=== PATIENT | female | born 1950 | race Caucasian/White ===

== ENCOUNTER 2016-08-24 13:21 | Emergency (ER) | payer MEDICARE, OTHER ==
[~2016-08-24] VITALS: Ht 154.9 cm; Wt 48.6 kg
[2016-08-24 13:25] VITALS: BP 131/70; PULSE 70; TEMP 98.8
[2016-08-24] MEDS ORDERED: BYSTOLIC2.5 MG PO (13:48)
[2016-08-24] MEDS ORDERED: RT ADVAIR 528 DISKUS IH (13:49)
[2016-08-24] MEDS ORDERED: LIPITOR 10MG10 MG PO (13:49)
[2016-08-24] MEDS ORDERED: ASPIRIN 81M81 MG/TA2 PO (13:49)
[2016-08-24] MEDS ORDERED: ALLEGRA 180MG180 MG PO (13:50)
[2016-08-24] MEDS ORDERED: LASIX 20MG TABL20 MG PO (13:52)
== END 2016-08-24 15:27 | disposition home or self-care (01) ==
LOC: COL.ER 13:21
DX: S81.811A Laceration without foreign body, right lower leg, initial encounter (principal); I25.2 Old myocardial infarction; Z23 Encounter for immunization; W54.1XXA Struck by dog, initial encounter

== ENCOUNTER → 2017-06-18 | Outpatient (CLI) | payer MEDICARE, OTHER ==
[~2017-06-18] VITALS: Ht 154.9 cm; Wt 50.0 kg
[~2017-06-18] MED LIST: ALLEGRA 180MG180 MG PO; ASPIRIN 81M81 MG/TA2 PO; BYSTOLIC2.5 MG PO; CALCIUM 600 PLU1 TAB PO; FOSAMAX 70MG TA70 MG PO; GLUCOSAMINE MSM1 TAB PO; LASIX 20MG TABL20 MG PO; LIPITOR 10MG10 MG PO; LUTEIN20 M1 PO; MASON NATURAL1200 MG PO; MULTI VITAMINS1 TAB PO; RT ADVAIR 528 DISKUS IH
[2017-06-18 06:45] VITALS: BP 120/74; PULSE 63
[2017-06-18 08:20] VITALS: BP 138/80; PULSE 55
== END ==
LOC: COL.RAD 06:30
DX: M46.1 Sacroiliitis, not elsewhere classified (principal); M48.061 Spinal stenosis, lumbar region without neurogenic claudication
CPT/HCPCS: J3301

== ENCOUNTER 2017-08-14 11:30 | Outpatient (RCR) | payer MEDICARE, OTHER ==
[2017-08-17] MEDS ORDERED: TURMERIC500 MG PO (07:16)
[2017-08-17] MEDS ORDERED: ALEVE 220MG220 MG PO (07:17)
[2017-08-17] MEDS ORDERED: GINGER500 MG PO (07:18)
== END 2017-09-22 | disposition home or self-care (01) ==
LOC: WSC
DX: M46.1 Sacroiliitis, not elsewhere classified (principal); M48.061 Spinal stenosis, lumbar region without neurogenic claudication; M54.42 Lumbago with sciatica, left side; M25.552 Pain in left hip
CPT/HCPCS: G0283-GP; G8978-GP; G8979-GP

== ENCOUNTER → 2017-08-17 | Outpatient (CLI) | payer MEDICARE, OTHER ==
[~2017-08-17] VITALS: Ht 154.9 cm; Wt 49.7 kg
[~2017-08-17] MED LIST changes: +ALEVE 220MG220 MG PO; +GINGER500 MG PO; +TURMERIC500 MG PO
[2017-08-17 07:20] VITALS: BP 132/72; PULSE 52
[2017-08-17 09:00] VITALS: BP 140/78; PULSE 48
== END ==
LOC: COL.RAD 06:57
DX: M48.07 Spinal stenosis, lumbosacral region (principal); M46.1 Sacroiliitis, not elsewhere classified
CPT/HCPCS: J3301

== ENCOUNTER → 2017-09-14 | Outpatient (CLI) | payer MEDICARE, OTHER | LOC: COL.RAD 07:46 | DX: M51.16 Intervertebral disc disorders with radiculopathy, lumbar region (principal); M48.07 Spinal stenosis, lumbosacral region; M46.86 Other specified inflammatory spondylopathies, lumbar region ==

== ENCOUNTER 2018-02-21 02:39 | Emergency (ER) | payer MEDICARE, OTHER ==
[~2018-02-21] VITALS: Ht 154.9 cm; Wt 49.5 kg
[2018-02-21 02:42] VITALS: TEMP 97.3
[2018-02-21 03:19] LABS: BASO # 0.1 (0.0-0.2); BASO % 0.7 % (0.0-2.0); EOS # 0.2 (0.0-0.7); EOS % 2.3 % (0-4.0); GRAN # 6.8 (1.4-6.5); GRAN % 71.4 % (42.2-75.2); HEMOGLOBIN 11.7 g/dl (12.5-16.0); LYMPH # 1.9 (1.2-3.4); LYMPH % 19.3 % (20.0-51.0); MEAN CELL VOLUME 96 fl (80.0-100.0); MEAN CORPUSCULAR HEMOGLOBIN 32 pg (27.0-31.0); MEAN CORPUSCULAR HGB CONC 33 g/dl (33.0-37.0); MEAN PLATELET VOLUME 9.3 fl (7.4-10.4); MONO # 0.6 (0.1-0.6); PLATELET COUNT 211 K/mm3 (130-400); RED BLOOD COUNT 3.66 M/mm3 (4.10-5.30); REDCELL DISTRIBUTION WIDTH-CV 13.6 % (11.5-14.5)
[2018-02-21 03:23] LABS: HEMATOCRIT 35.2 % (37.0-47.0)
[2018-02-21 03:34] LABS: ALANINE AMINOTRANSFERASE 23 U/L (9-52); ALBUMIN 3.7 gm/dL (3.5-5.0); ALKALINE PHOSPHATASE 36 U/L (50-136); ANION GAP 4 mmol/L (7-16); AST,SGOT 22 U/L (15-37); BILIRUBIN,TOTAL 0.2 mg/dL (0.0-1.0); BLOOD UREA NITROGEN 15 mg/dL (7-17); CALCIUM 8.9 mg/dL (8.4-10.2); CARBON DIOXIDE 29 mmol/L (22-30); CHLORIDE 107 mmol/L (98-107); CREATININE, serum 0.64 mg/dL (0.52-1.25); GLUCOSE 123 mg/dL (74-106); POTASSIUM 3.9 mmol/L (3.4-5.0); SODIUM 140 mmol/L (137-145); TOTAL PROTEIN 6.1 gm/dL (6.4-8.2)
[2018-02-21 03:44] LABS: C-REACTIVE PROTEIN < 0.5 mg/dL (0.0-0.9)
[2018-02-21 03:46] LABS: ERYTHROCYTE SEDIMENTATION RATE 8 mm/hr (0-30)
[2018-02-21 06:55] LABS: COLLECTION METHOD CLEAN CATCH
[2018-02-21 07:00] LABS: MUCOUS Present /lpf; PH 6 (5-8); SQUAMOUS EPITHELIAL None Seen /hpf; URINE APPEARANCE Clear; URINE BACTERIA None Seen /hpf; URINE BILIRUBIN Negative (NEGATIVE); URINE BLOOD Negative (NEGATIVE); URINE COLOR Yellow; URINE GLUCOSE Negative (NEGATIVE); URINE KETONE Negative (NEGATIVE); URINE LEUKOCYTE ESTERASE Negative (NEGATIVE); URINE NITRATE Negative (NEGATIVE); URINE PROTEIN(semi-quant) Negative (NEGATIVE); URINE RBC 0-2 /hpf; URINE UROBILINOGEN Negative (NEGATIVE); URINE WBC 0-2 /hpf
[2018-02-21 10:44] VITALS: BP 135/59; PULSE 75
[2018-02-21] MEDS ORDERED: MEDROL8 M1 PO (18:56)
[2018-02-21] MEDS ORDERED: NORCO 325 MG-7.1 TAB PO (18:56)
== END 2018-02-21 11:32 | disposition home or self-care (01) ==
LOC: COL.ER 02:39
PROVIDERS: Emergency Medicine
DX: R51 Headache (principal); M54.5 Low back pain; I10 Essential (primary) hypertension; I25.10 Atherosclerotic heart disease of native coronary artery without angina pectoris; E78.5 Hyperlipidemia, unspecified; R20.2 Paresthesia of skin; Z79.82 Long term (current) use of aspirin; Z79.51 Long term (current) use of inhaled steroids
CPT/HCPCS: A9585; J0780; J1170; J1200; J1885; J2060; J2405; J3010; J7030

== ENCOUNTER 2018-02-21 18:24 | Emergency (ER) | payer MEDICARE, OTHER ==
[2018-02-21 18:29] VITALS: TEMP 99.7
[2018-02-21] MEDS ORDERED: NORCO 325 MG-7.1 TAB PO (18:56)
[2018-02-21] MEDS ORDERED: MEDROL8 M1 PO (18:56)
[2018-02-21 18:57] LABS: BASO # 0.1 (0.0-0.2); BASO % 0.5 % (0.0-2.0); EOS # 0.1 (0.0-0.7); EOS % 0.5 % (0-4.0); GRAN # 14.6 (1.4-6.5); GRAN % 89.1 % (42.2-75.2); HEMATOCRIT 38.6 % (37.0-47.0); LYMPH # 0.6 (1.2-3.4); LYMPH % 3.8 % (20.0-51.0); MEAN CELL VOLUME 94 fl (80.0-100.0); MEAN CORPUSCULAR HEMOGLOBIN 32 pg (27.0-31.0); MEAN CORPUSCULAR HGB CONC 34 g/dl (33.0-37.0); MEAN PLATELET VOLUME 9.1 fl (7.4-10.4); MONO # 0.9 (0.1-0.6); MONO % 5.5 % (1.7-9.3); PLATELET COUNT 184 K/mm3 (130-400); REDCELL DISTRIBUTION WIDTH-CV 13.5 % (11.5-14.5)
[2018-02-21 19:10] LABS: BILIRUBIN,TOTAL 0.8 mg/dL (0.0-1.0); CALCIUM 8.6 mg/dL (8.4-10.2); CREATININE, serum 0.49 mg/dL (0.52-1.25); POTASSIUM 3.7 mmol/L (3.4-5.0); TOTAL PROTEIN 6.6 gm/dL (6.4-8.2)
[2018-02-21 19:17] LABS: ERYTHROCYTE SEDIMENTATION RATE 10 mm/hr (0-30)
[2018-02-21 21:47] VITALS: BP 140/91; PULSE 112
== END 2018-02-21 21:52 | disposition short-term general hospital (02) ==
LOC: COL.ER 18:24
PROVIDERS: Family Medicine
DX: R51 Headache (principal); M54.5 Low back pain; I25.10 Atherosclerotic heart disease of native coronary artery without angina pectoris; Z87.891 Personal history of nicotine dependence; Z98.890 Other specified postprocedural states; Z79.82 Long term (current) use of aspirin; Z79.51 Long term (current) use of inhaled steroids
CPT/HCPCS: A4216; J0692; J1170; J2270; J2405; J3370; J7030; J7050

== ENCOUNTER 2018-04-14 14:11 | Outpatient (CLI) | payer MEDICARE, OTHER ==
[~2018-04-14] VITALS: Ht 154.9 cm; Wt 47.0 kg
[~2018-04-14 14:11] MED LIST changes: +MEDROL8 M1 PO; +NORCO 325 MG-7.1 TAB PO
--- NOTE | 2018-04-14 14:30 | NUR ---
patient did not have an updated med list with her, reviewed med list and dc'd meds she was not on, but did not know doses of knew meds
[2018-04-14] MEDS ORDERED: XARELTO2.5 MG PO (14:53)
[2018-04-14 15:00] VITALS: BP 104/67; PULSE 58; TEMP 97.6
== END 2018-04-14 15:30 | disposition home or self-care (01) ==
LOC: EUO 14:11
DX: T81.30XA Disruption of wound, unspecified, initial encounter (principal)

== ENCOUNTER → 2018-04-27 | Outpatient (CLI) | payer MEDICARE, OTHER ==
[~2018-04-27] MED LIST changes: +XARELTO2.5 MG PO
== END ==
LOC: MC.RAD 08:33
DX: Z12.31 Encounter for screening mammogram for malignant neoplasm of breast (principal)